=== PATIENT | male | born 1955 | race Caucasian/White ===

== ENCOUNTER → 2017-10-10 | Outpatient (CLI) | payer OTHER ==
--- NOTE | 2017-10-11 12:40 | XCELERA REPORT ---
[address] [address] Lower Extremity Arterial Evaluation Name: WHITNEY ZAYAS Age: 61 yrs Gender: Male : 1955 Patient Status: Outpatient Patient Location: Study Date: 10/10/2017 02:13 PM Procedure: A color flow and duplex scan of the lower extremity arteries was performed bilaterally with velocity and waveform anaylsis. Ankle brachial indicies performed. Reason For Study: DM POLYNEUROPATHY Ordering Physician: SKYLER HARVEY Performed By: Lazaro Mtz Measurements and Calculations Right Left VASCULAR TECHNICIAN PSV 91.0 97.6 cm/sec Prox PFA PSV -105.0 121.3 cm/sec Prox SFA PSV 85.9 110.0 cm/sec Mid SFA PSV -74.2 -53.7 cm/sec Dist SFA PSV -95.2 -65.2 cm/sec Prox Pop A PSV 37.5 34.4 cm/sec Dist DANILO PSV 83.0 53.3 cm/sec Dist HEAD OF SALES [employer] MARKETING PSV 94.8 55.6 cm/sec Nick Pedis PSV 75.8 -141.1 cm/sec Right Side Arterial Evaluation Normal velocity and triphasic waveforms noted in the Common Femoral artery. Biphasic Popliteal, monophasic infrageniculate vessels. 20-49% stenosis at the Femoral artery. Sequential disease also. Ankle Brachial index is 0.9. PPG's monophasic, dampened slightly. In remaining toes.. Left Side Arterial Evaluation Normal velocity and triphasic waveforms noted from the Common Femoral artery to the Popliteal. Biphasic Posterior Tibial, monophasic Anterior Tibial.. 20-49% stenosis at the Anterior Tibial.. Ankle Brachial index is 0.9.. PPG's normal. Interpretation Summary Severe hemodynamically significant lesions in the right lower extremity only, on duplex imaging, at rest. Moderate hemodynamically significant lesions in the left lower extremity only, on duplex imaging, at rest. REJI probably artefactually elevated on right. : SKYLER HARVEY > Kayden Khoury
== END ==
LOC: SP 13:04
PROVIDERS: ATTEND Preventive Medicine Undersea and Hyperbaric Medicine
DX: E10.42 Type 1 diabetes mellitus with diabetic polyneuropathy (principal)
CPT/HCPCS: 93922; 93925

== ENCOUNTER 2017-10-26 10:50 | Day surgery (SDC) | payer OTHER ==
[~2017-10-26 10:50] MED LIST: CLINDAMYCIN 600 MG/D5W RTU 600 MG/50 ML RTUPB IV PRN
[2017-10-26] MEDS ORDERED: MIDAZOLAM 2 MG/2 ML INJ ONE (11:32)
[2017-10-26] MEDS ORDERED: PROPOFOL INJ 200 MG/20 ML VIAL IV ONE (11:32)
[2017-10-26] MEDS ORDERED: FENTANYL CITRATE INJ/PF 100 MCG/2 ML AMPUL ONE (11:32)
[2017-10-26] MEDS ORDERED: DEXMEDETOMIDINE INJ 80 MCG/20 ML VIAL IV ONE (11:32)
[2017-10-26] MEDS ORDERED: BUPIVACAINE HCL 0.5 % INJ/PF 30 ML SDV ONE (12:05)
[2017-10-26] MEDS ORDERED: POLYMYXIN B SULFATE INJ 500000 UNIT VIAL ONE (12:06)
[2017-10-26] MEDS ORDERED: LIDOCAINE 2% INJ (20 MG/ML) 20 ML MDV ONE (12:06)
[2017-10-26] MEDS ORDERED: NORMAL SALINE INJ/PF 0.9% 10 ML SDV ONE (12:07)
[2017-10-26] MEDS ORDERED: BACITRACIN INJ 50,000 UNIT VIAL ONE (12:07)
[2017-10-26] MEDS ORDERED: LIDOCAINE 1%/EPINEPHRINE INJ 20 ML VIAL ONE (12:14)
--- NOTE | 2017-10-27 11:56 | SURGICARE DISCHARGE SUMMARY E ---
[facility] Discharge Summary NAME: WHITNEY ZAYAS AGE: 61Y ADMITTED: 10/26/2017 DISCHARGED: 10/26/2017 POSTOPERATIVE DIAGNOSIS: Osteomyelitis third toe of the right foot. PROCEDURE PERFORMED: Amputation of third toe of the right foot on 10/26/17. SUMMARY: The patient was admitted to [facility] with complaint of infected third toe on the right foot. He was taken to the operating room. Operative procedure was performed. The patient tolerated surgery and anesthesia well and was later discharged from [facility] with prescriptions for Vicodin 5 mg, to take 1 or 2 p.o. q.6 hours as needed for pain. The patient was given a postop surgical shoe, allowed to bear weight on his heel, and was given a follow up appointment for wound center on Sunday, 10/29. DICTATING PHYSICIAN: SKYLER HARVEY DPM [id number] PHY#: [id number] ID: [id number] JOB#: [id number] ACCT: [id number] cc:SKYLER HARVEY DPM >
--- NOTE | 2017-10-29 14:28 | SURGICARE OPERATIVE REPORT E ---
[facility] Operative Report NAME: WHITNEY ZAYAS AGE: 61Y DATE OF SURGERY: 10/26/2017 ROOM: PREOPERATIVE DIAGNOSIS: OSTEOMYELITIS OF THE 3RD TOE OF THE RIGHT FOOT. POSTOPERATIVE DIAGNOSIS: OSTEOMYELITIS OF THE 3RD TOE OF THE RIGHT FOOT. DRAINING SINUS OF THE 3RD TOE RIGHT FOOT. OPERATION: Amputation of the 3rd toe right foot. SURGEON: SKYLER HARVEY DPM INDICATION: On 10/26/2017, the patient was admitted to [facility] with complaint of infected draining ulceration on the third toe of the right foot. The patient was taken to the operating room. PROCEDURE: Following induction of intravenous sedation the patient's right foot and leg were prepped and draped in sterile manner. At that time a surgical time out was performed to verify the patient, correct surgical site, pre-op meds and anticipated procedure. Then attention was directed to the patient's third toe, where there was noted to be a draining sinus at the most distal aspect. At that time, local anesthetic was infiltrated for anesthesia of 1% lidocaine and 0.5% Marcaine 50/50 mix with epinephrine in the lidocaine. Attention was then directed to the patient's 3rd toe. A circumferential incision was made just distal to the base of the 3rd toe. This was carried to bone utilizing a Rebecca bone cutter. The toe was transected transversely and removed from the surgical field. At that time, gloves were changed and instrumentation was used for disarticulation and were removed from the field. New gloves were applied and the procedure continued on. Utilizing rongeur, the remaining portion of the partial phalanx was removed with specimens sent for pathology and specimen sent for microbiology. Dissection was carried out to remove all tendons and periosteal structures that were remaining. Debulking was performed. All bleeding vessels were clamped, ligated, and Bovied as necessary for hemostasis. The remaining portion of the proximal phalanx was debrided down to the base, leaving just the most proximal portion of the proximal phalanx. Then utilizing a hand-held rasp all sharp osseous edges were rasped smooth. The wound was inspected for osseous and soft tissue debris with none found. The wound was then flushed with copious amounts of sterile antibiotic solution and again inspected for any osseous or soft tissue debris, with none being noted. At that time, the incision was closed with 4-0 Nylon using combination of vertical mattress and horizontal mattress suture. Sterile dressings were applied, 4 x 4s, Kerlix, and Coban applied to the patient's right foot. The patient appeared to tolerate surgery and anesthesia well and was taken to the recovery room by the anesthesia department. DICTATING PHYSICIAN: SKYLER HARVEY DPM [id number] PHY#: [id number] ID: [id number] JOB#: [id number] ACCT: [id number] cc:SKYLER HARVEY DPM > MTDD
== END 2017-10-26 14:20 | disposition home or self-care (01) ==
LOC: SC 10:50
PROVIDERS: ATTEND Preventive Medicine Undersea and Hyperbaric Medicine
DX: M86.471 Chronic osteomyelitis with draining sinus, right ankle and foot (principal); B95.7 Other staphylococcus as the cause of diseases classified elsewhere; I10 Essential (primary) hypertension; E11.9 Type 2 diabetes mellitus without complications; G47.30 Sleep apnea, unspecified; Z88.0 Allergy status to penicillin; Z88.8 Allergy status to other drugs, medicaments and biological substances; Z79.84 Long term (current) use of oral hypoglycemic drugs; Z79.899 Other long term (current) drug therapy; Z79.4 Long term (current) use of insulin; Z87.891 Personal history of nicotine dependence; Z79.82 Long term (current) use of aspirin
CPT/HCPCS: 87070; 87205; 87206; 87116; 82962; 87075; 87077; 87186; 87015; 28820; J2250; J3490 ×6; J2704; 1480; J3010